=== PATIENT | female | born 1980 | race Caucasian/White ===

== ENCOUNTER → 2023-01-27 | Outpatient (CLI) | payer MEDICARE, MEDICAID ==
[~2023-01-27] MED LIST: CHOLESTEROL MA600 MG PO; CLARITIN10 MG PO; DDAVP 0.01% NASA5 ML NAS; GLUCOSAMINE CHO1 CAP PO; LEVOTHYROXIN0.088 MG PO; MOTRIN IB200 MG PO; MULTI VITAMINS1 TAB PO; OCUVITE1 TA1 PO; PROGESTERONE200 M1 PO; RITE AID KRILL500 MG PO; TYLENOL EXTRA500 M1 PO; VIVELLE0.1 MG/24 TOP; [UNRECOGNIZED DRUG - OTHER] IM
== END ==
LOC: MAMMO 13:39
DX: Z12.31 Encounter for screening mammogram for malignant neoplasm of breast (principal)

== ENCOUNTER → 2024-03-24 | Outpatient (CLI) | payer MEDICARE, MEDICAID ==
[~2024-03-24] MED LIST changes: +MECLIZINE PO
[2024-03-24 12:19] LABS: ALBUMIN 4.1 g/dL (3.5-5.0)
[2024-03-24 12:21] LABS: CALCIUM 10.1 mg/dL (8.3-10.5)
[2024-03-24 12:22] LABS: TOTAL PROTEIN 7.1 g/dL (6.4-8.3)
[2024-03-24 12:24] LABS: BASO # 0.02 K/mm3 (0.02-0.10); EOS # 0.15 K/mm3 (0.04-0.40); EOS % 1.5 % (1.0-5.0); LYMPH# 3.32 K/mm3 (1.50-4.00); MEAN CELL VOLUME 87 fl (78-100); MEAN CORPUSCULAR HEMOGLOBIN 28 pg (27-31); MEAN CORPUSCULAR HGB CONC 33 g/dL (33-37); MEAN PLATELET VOLUME 12.7 fl (7.4-10.4); MONO # 0.48 K/mm3 (0.20-0.80); NEU # 5.89 K/mm3 (1.40-6.50); PLATELET COUNT 258 K/mm3 (130-400); RED BLOOD COUNT 5.28 M/mm3 (4.10-5.30); RED CELL DISTRIBUTION WIDTH 12.8 % (11.5-14.5); TOTAL BILIRUBIN 0.3 mg/dL (0.2-1.2); WHITE BLOOD COUNT 9.9 K/mm3 (4.8-10.8)
[2024-03-24 12:29] LABS: MAGNESIUM 2.06 mg/dL (1.60-2.60)
[2024-03-24 22:30] LABS: T3 FREE 4.3 pg/mL (1.7-3.7)
== END ==
LOC: LAB 11:46
PROVIDERS: Internal Medicine
DX: E23.2 Diabetes insipidus (principal); K90.9 Intestinal malabsorption, unspecified; E23.0 Hypopituitarism; E78.2 Mixed hyperlipidemia; R73.03 Prediabetes

== ENCOUNTER → 2024-06-29 | Outpatient (CLI) | payer MEDICARE, MEDICAID | LOC: RAD 15:47 | DX: M25.562 Pain in left knee (principal) ==

== ENCOUNTER → 2024-10-19 | Outpatient (CLI) | payer MEDICARE, MEDICAID ==
[2024-10-19 11:44] LABS: BASO # 0.03 K/mm3 (0.02-0.10); EOS # 0.21 K/mm3 (0.04-0.40); EOS % 1.8 % (1.0-5.0); HEMATOCRIT 46.6 % (37.0-47.0); LYMPH# 3.13 K/mm3 (1.50-4.00); MEAN CELL VOLUME 87 fl (78-100); MEAN CORPUSCULAR HEMOGLOBIN 28 pg (27-31); MEAN CORPUSCULAR HGB CONC 32 g/dL (33-37); MEAN PLATELET VOLUME 11.7 fl (7.4-10.4); MONO # 0.53 K/mm3 (0.20-0.80); NEU # 7.94 K/mm3 (1.40-6.50); PLATELET COUNT 288 K/mm3 (130-400); RED BLOOD COUNT 5.33 M/mm3 (4.10-5.30); RED CELL DISTRIBUTION WIDTH 12.9 % (11.5-14.5); WHITE BLOOD COUNT 11.9 K/mm3 (4.8-10.8)
[2024-10-19 11:57] LABS: ALBUMIN 4.1 g/dL (3.5-5.0)
[2024-10-19 11:58] LABS: CALCIUM 9.7 mg/dL (8.3-10.5)
[2024-10-19 11:59] LABS: TOTAL PROTEIN 7.1 g/dL (6.4-8.3)
[2024-10-19 12:01] LABS: TOTAL BILIRUBIN 0.3 mg/dL (0.2-1.2)
[2024-10-20 00:32] LABS: T3 FREE 4.4 pg/mL (1.7-3.7)
== END ==
LOC: LAB 11:17
PROVIDERS: Internal Medicine
DX: K90.9 Intestinal malabsorption, unspecified (principal); E23.0 Hypopituitarism; E78.2 Mixed hyperlipidemia; F41.8 Other specified anxiety disorders; R73.9 Hyperglycemia, unspecified